=== PATIENT | male | born 1980 ===

== ENCOUNTER 2018-01-08 14:00 | Emergency (ER) | payer SELFPAY ==
[2018-01-08] MEDS ORDERED: PEPCID IV ONE (14:30)
[2018-01-08] MEDS ORDERED: BENADRYL IV ONE (14:30)
[2018-01-08] MEDS ORDERED: NACL 0.9% 1000 ML 1,000 ML IV ONE (14:31)
--- NOTE | 2018-01-08 15:15 | Emergency Department Report ---
HPI - General Chief Complaint: Allergic Reaction Time Seen by Provider: 01/08/18 14:30 - HPI HPI: 37-year-old -[place] male presents to the emergency department driven in by family, with complaint of having itchy hives all over his body including his face as well as some swelling to the tongue and lips. Patient says he woke up and was just feeling itchy but did not have any rash or lesions at that time. By the time he got to work people started telling him that he had what appears to be hives all over. He denies any drooling or trismus but does say that occasionally he will feel as if his throat is swollen or he is short of breath. He had previously been told that he had a gluten intolerance and/or allergy to wheat but this has been many years ago and he says that he has never had a reaction like this. He denies any past medical history. He did not take anything for her symptoms prior presentation. No recent travel or sick contacts at home. ED Past Medical Hx - Past Medical History Previous Medical History?: No - Surgical History Past Surgical History?: No - Social History Smoking Status: Current Every Day Smoker Substance Use Type: None - Medications Home Medications: Home Medications Medication Instructions Recorded Confirmed Last Taken Type Famotidine [Pepcid] 20 mg PO QDAY #5 tablet 01/08/18 Unknown Rx predniSONE [Deltasone] 20 mg PO BID #8 tab 01/08/18 Unknown Rx ED Review of Systems ROS: Stated complaint: ALLERGIC REACTION Other details as noted in HPI Comment: All other systems reviewed and negative Constitutional: denies: chills, fever Eyes: denies: eye pain, eye discharge, vision change ENT: throat pain. denies: ear pain Respiratory: denies: cough, wheezing Cardiovascular: denies: chest pain, palpitations Gastrointestinal: denies: abdominal pain, nausea, diarrhea Genitourinary: denies: urgency, dysuria Musculoskeletal: denies: back pain, joint swelling, arthralgia Skin: rash, pruritus Neurological: denies: headache, weakness, paresthesias Physical Exam - Physical Exam Vital Signs: Vital Signs 01/08/18 14:22 Temperature 98.1 F Pulse Rate 84 Respiratory 16 Rate Blood Pressure 112/72 O2 Sat by Pulse 99 Oximetry Physical Exam: GENERAL: The patient is well-developed well-nourished. HENT: Normocephalic. Atraumatic. Patient has moist mucous membranes. Oropharynx is clear. No drooling or trismus. Mild upper lip swelling. EYES: Extraocular motions are intact. Pupils equal reactive to light bilaterally. NECK: Supple. Trachea is midline. CHEST/LUNGS: Clear to auscultation. There is no respiratory distress noted. HEART/CARDIOVASCULAR: Regular. There is no tachycardia. There is no murmur. ABDOMEN: Abdomen is soft, nontender. Patient has normal bowel sounds. There is no abdominal distention. SKIN: Patient has urticaria to the face, neck, chest, abdomen, back, upper and lower extremities. There are some excoriations consistent with his complaint of pruritus. NEURO: The patient is awake, alert, and oriented. The patient is cooperative. The patient has no focal neurologic deficits. The patient has normal speech. MUSCULOSKELETAL: There is no tenderness or deformity. There is no limitation range of motion. There is no evidence of acute injury. ED Course Vital Signs 01/08/18 14:22 Temperature 98.1 F Pulse Rate 84 Respiratory 16 Rate Blood Pressure 112/72 O2 Sat by Pulse 99 Oximetry - Pulse Oximetry Interpretation Digit-Finger Initial Pulse Oximetry Readin O2 Sat by Pulse Oximetry: 100 Actions Taken: none Additional Comments: normal ED Medical Decision Making - Lab Data Result diagrams: 01/08/18 14:59 01/08/18 14:59 - Medical Decision Making Patient appears consistent with an allergic reaction with generalized urticaria. Vital signs stable including being afebrile. He was given Solu- Medrol, Benadryl, Pepcid and IV fluid. He was reevaluated multiple times over multiple hours and is greatly improved. Most of the urticaria has resolved and the patient no longer feels pruritic. He is asking for discharge home at this time. He will be discharged with prescriptions for steroids and Pepcid and will pickle processor [id number] Benadryl. He has been given referrals for primary care and an muleser. He will return to the ER with any worsening of symptoms or any acute distress. - Differential Diagnosis complement deficiency, allergic reaction, dermatitis Critical Care Time: No Critical care attestation.: If time is entered above; I have spent that time in minutes in the direct care of this critically ill patient, excluding procedure time. ED Disposition Clinical Impression: Urticaria Allergic reaction Qualifiers: Encounter type: initial encounter Qualified Code(s): T78.40XA - Allergy, unspecified, initial encounter Disposition: - TO HOME OR SELFCARE Is pt being admited?: No Condition: Stable Instructions: Urticaria (ED), Angioedema (ED) Additional Instructions: Please follow up with a primary care physician and an muleser as soon as possible. Return to the emergency Department with any worsening of your symptoms or any acute distress. Prescriptions: Famotidine [Pepcid] 20 mg PO QDAY #5 tablet predniSONE [Deltasone] 20 mg PO BID #8 tab Referrals: KASIA PAL MD [Staff Physician] - 3-5 Days FALLON BA MD [Referring] - 3-5 Days Time of Disposition: 17:54
[2018-01-08 15:30] LABS: Basophils % (Auto) 0.5 % (0.0-1.8); Eosinophils % (Auto) 0.5 % (0.0-4.3); Lymphocytes % (Auto) 40.4 % (13.4-35.0); Mean Corpuscular HGB Conc 36 % (32-34); Mean Corpuscular Hemoglobin 31 pg (28-32); Mean Corpuscular Volume 87 fl (84-94); Monocytes # (Auto) 0.2 K/mm3 (0.0-0.8); Monocytes % (Auto) 2.4 % (0.0-7.3); Platelet Count 238 K/mm3 (140-440); Red Cell Distribution Width 15.2 % (13.2-15.2)
[2018-01-08 15:36] LABS: Hematocrit 42.7 % (35.5-45.6); Hemoglobin 15.4 gm/dl (11.8-15.2)
[2018-01-08 15:57] LABS: BUN/Creatinine Ratio 13; Blood Urea Nitrogen 9 mg/dL (9-20); Calcium 8.4 mg/dL (8.4-10.2); Hemolysis Index 14
[2018-01-08] MEDS ORDERED: K-DUR PO ONE (16:02)
[2018-01-08 18:17] VITALS: BP 105/60
== END 2018-01-08 18:34 | disposition home or self-care (01) ==
LOC: ED 14:00
DX: L50.9 Urticaria, unspecified (principal); T78.40XA Allergy, unspecified, initial encounter; F17.200 Nicotine dependence, unspecified, uncomplicated
CPT/HCPCS: 36415; 80048; 85025; 96361; 96374; 96375; 99284; J1200; J2930; J7030